=== PATIENT | male | born 1935 | race Two or more races ===

== ENCOUNTER 2017-07-29 15:33 | Inpatient (IN) | payer BC, MEDICARE ==
[~2017-07-29] VITALS: Ht 172.7 cm; Wt 66.3 kg
--- NOTE | 2017-07-29 15:45 | NUR ---
AAOX3, BIB RA FROM HOME, IS UNABLE TO CARE PT AT HOME. RR IS EVEN AND UNLABORED WITH NAD NOTED. SKIN IS WARM AND DRY. PLACED ON THE MONITOR. WILL CONTINUOUSLY MONITOR THE PATIENT. AWAITING MD FOR EVAL.
[2017-07-29 16:05] LABS: BASOPHILS % (AUTO) 0.4 % (0.0-2.0); EOSINOPHILS # (AUTO) 0.3 /CMM (0.0-0.7); EOSINOPHILS % (AUTO) 2.9 % (0.0-6.0); HEMATOCRIT 42 % (39-51); HEMOGLOBIN 13.8 g/dL (13.5-17.5); LYMPHOCYTES # (AUTO) 1.8 /CMM (0.8-4.8); LYMPHOCYTES % (AUTO) 17.8 % (20.0-44.0); MEAN CORPUSCULAR HEMOGLOBIN 29 PG (26.0-33.0); MEAN CORPUSCULAR HGB CONC 33 g/dl (31.0-36.0); MEAN CORPUSCULAR VOLUME 89 fL (80-96); MONOCYTES # (AUTO) 0.9 /CMM (0.1-1.30); MONOCYTES % (AUTO) 8.6 % (2.0-12.0); NEUTROPHILS # (AUTO) 7.2 /CMM (1.8-8.9); NEUTROPHILS % (AUTO) 70.3 % (43.0-81.0); PLATELET COUNT (AUTO) 181 /CMM (150-450); RDW COEFFICIENT OF VARIATION 13.9 (11.5-15.0); WHITE BLOOD COUNT (AUTO) 10.2 K/uL (4.3-11.0)
[2017-07-29 16:15] LABS: CALCIUM, SERUM 9.9 mg/dL (8.5-10.1); CARBON DIOXIDE 30 mmol/L (21-32); CHLORIDE 104 mmol/L (98-107); CREATININE 1.4 mg/dL (0.6-1.3); GLUCOSE 207 mg/dL (74-106); POTASSIUM 3.9 mmol/L (3.5-5.1); SODIUM SERUM 140 mmol/L (136-145); UREA NITROGEN, BLOOD 50 mg/dL (7-18)
[2017-07-29 16:23] LABS: ACETAMINOPHEN 0 ug/ml (10-30); ALANINE AMINOTRANSFERASE 18 U/L (12-78); ALBUMIN 2.9 g/dL (3.4-5.0); ALCOHOL, BLOOD < 3 mg/dL (0-0); ALKALINE PHOSPHATASE 233 U/L (46-116); ASPARTATE AMINOTRANSFERASE 20 U/L (15-37); BILIRUBIN,DIRECT 0.1 mg/dL (0.0-0.2); BILIRUBIN,TOTAL 0.3 mg/dL (0.2-1.0); SALICYLATE 1.1 mg/dL (2.8-20.0); TOTAL PROTEIN, SERUM 8.5 g/dL (6.4-8.2)
[2017-07-29 16:32] LABS: TROPONIN I 0.188 ng/mL (0.00-0.056)
--- NOTE | 2017-07-29 16:35 | NUR ---
Patient is resting comfortably in bed with eyes closed. Easily aroused. VSS
--- NOTE | 2017-07-29 17:26 | NUR ---
CALLED [employer] CHEMICAL TESTER WAS PAGED.
[2017-07-29] MEDS ORDERED: METO-304 GT (18:00)
[2017-07-29] MEDS ORDERED: TEMA15CA GT (18:00)
[2017-07-29] MEDS ORDERED: MAGN400T6 GT (18:00)
[2017-07-29] MEDS ORDERED: BETH25TA GT (18:00)
[2017-07-29] MEDS ORDERED: ASPI81TA2 GT (18:00)
[2017-07-29] MEDS ORDERED: TAMS0.4C34 GT (18:00)
[2017-07-29] MEDS ORDERED: HYDR-3026 PO (18:00)
[2017-07-29] MEDS ORDERED: TRAM50TA2 GT (18:00)
[2017-07-29] MEDS ORDERED: AMIN30LI2 GT (18:00)
[2017-07-29] MEDS ORDERED: LEVO125T8 GT (18:00)
[2017-07-29] MEDS ORDERED: MIRT15TA7 GT (18:00)
[2017-07-29] MEDS ORDERED: PRAV40TA3 GT (18:00)
[2017-07-29] MEDS ORDERED: CARB-93 GT (18:00)
[2017-07-29] MEDS ORDERED: FURO20TA4 GT (18:00)
--- NOTE | 2017-07-29 18:35 | NUR ---
REPORT GIVEN TO MAGY BROCK FOR [employer] TELE [id number]
[2017-07-29] MEDS ORDERED: IV NS 0.9% 1,000 ML IV PRN (18:44)
[2017-07-29] MEDS ORDERED: TRAMADOL HCL 50 MG TABLET GT PRN ×2 (19:00→19:15)
[2017-07-29] MEDS ORDERED: ENOXAPARIN SODIUM 30 MG/0.3 ML DISP.SYRIN SQ SCH (19:00)
[2017-07-29] MEDS ORDERED: ZOLPIDEM TARTRATE 5 MG TABLET PO PRN ×2 (19:00→19:15)
[2017-07-29] MEDS ORDERED: MAGNESIUM HYDROXIDE 30 ML UDC PO PRN ×2 (19:00→19:15)
[2017-07-29] MEDS ORDERED: MAG HYDROX/AL HYDROX/SIMETH 30 ML UDC PO PRN (19:00)
[2017-07-29] MEDS ORDERED: Z GUARD REMEDY 2 OZ OINT TP PRN ×2 (19:00→19:15)
[2017-07-29] MEDS ORDERED: ONDANSETRON HCL/PF 4 MG/2 ML VIAL IVP PRN ×2 (19:00→19:15)
[2017-07-29] MEDS ORDERED: ACETAMINOPHEN 325 MG TABLET PO PRN (19:00)
[2017-07-29] MEDS ORDERED: HYDROCODONE/APAP 5/325MG 1 EACH TABLET PO PRN ×2 (19:00→19:15)
--- NOTE | 2017-07-29 19:08 | NUR ---
TELE/RN NOTES RECEIVED PT. FROM ER VIA [facility]. PT. IS AWAKE, ALERT AND ORIENTED X2. BREATHING EVEN AND UNLABORED ON 2LPM O2 VIA NC. NO SOB, RESPIRATORY DISTRESS OR COMPLAINTS OF PAIN NOTED AT THIS TIME. ORIENTED PT. TO ROOM. PLACED EXTERNAL LEARNING AND DEVELOPMENT DIRECTOR ON PT. CURRENT RHYTHM NSR HR 81. PT. WITH LEFT FOREARM 18 GAUGE IV SALINE LOCK PRESENT, PATENT AND INTACT. PT. WITH G-TUBE PRESENT, PATENT AND INTACT. PT. WITH COLOSTOMY PRESENT AND INTACT DRAINING SEMI FORMED BROWN STOOL. BED LOCKED AND IN LOWEST POSITION, SIDE RAILS UP X3, CALL LIGHT WITHIN REACH. AWAITING ADMITTING ORDERS. WILL CONTINUE TO MONITOR.
[2017-07-29] MEDS ORDERED: MAG HYDROX/AL HYDROX/SIMETH 30 ML UDC GT PRN (19:15)
[2017-07-29] MEDS ORDERED: NUT.250L18 GT (19:25)
[2017-07-29] MEDS ORDERED: hydrOXYzine PAMOATE 25 MG CAPSULE GT PRN (20:00)
[2017-07-29] MEDS ORDERED: ZOLPIDEM TARTRATE 5 MG TABLET GT PRN (20:44)
[2017-07-29] MEDS ORDERED: ACETAMINOPHEN 650 MG/20.3 ML UDC GT PRN (21:00)
[2017-07-29] MEDS ORDERED: CARBIDOPA/LEVODOPA 25/100 MG 1 UDTAB GT SCH (21:00)
--- NOTE | 2017-07-29 21:20 | NUR ---
TELE/RN NOTES CALLED [facility] ELEMENTARY SCHOOL TUTOR TO CLARIFY ORDERS. [facility] E[employer] TUTOR DR. JONES PAGED. AWAITING CALL BACK.
[2017-07-29 21:23] VITALS: BP 124/60
[2017-07-29] MEDS: IV NS 0.9% 1,000 ML IV PRN (21:32)
[2017-07-29] MEDS: ENOXAPARIN SODIUM 40 MG/0.4 ML DISP.SYRIN SQ SCH (21:48)
[2017-07-29] MEDS: CARBIDOPA/LEVODOPA 25/100 MG 1 UDTAB GT SCH (21:48)
[2017-07-29] MEDS: MIRTAZAPINE 15 MG TABLET GT SCH (21:48)
[2017-07-29] MEDS ORDERED: ATORVASTATIN 10 MG TABLET PO SCH (22:00)
[2017-07-29] MEDS ORDERED: MIRTAZAPINE 15 MG TABLET GT SCH (22:00)
[2017-07-29] MEDS ORDERED: TEMAZEPAM 15 MG CAPSULE GT SCH (22:00)
[2017-07-29] MEDS: PROSOURCE / PROSTAT (PYXIS) 30 ML UDC GT SCH (22:17)
--- NOTE | 2017-07-29 22:40 | NUR ---
TELE/RN NOTES SPOKE WITH [facility] TELEPHONE INSTRUMENT SUPERVISOR DR. JONES. CLARIFIED PT. ADMIT TO ORDER. PT. ORIGINALLY ADMITTED TO MED SURG HOWEVER PT. HAS TROPONIN OF 0.188 AND NO OTHER TROPONIN LABS ORDERED TO BE DRAWN. PER DR. JONES NEW ORDER: TELE MONITORING, REPEAT TROPONIN LAB ONCE, ECHO AND CARDIAC CONSULT. NOTIFIED DR. JONES PT. RECEIVES DIABETISOURCE @ 50ML/HR AT HOME. PER DR. JONES GLYTROL TUBE FEEDING @ 50ML/HR AND Q6HR ACCUCHECKS WITH MODERATE SLIDING SCALE. WILL CARRY OUT ORDERS. WILL CONTINUE TO MONITOR.
[2017-07-29] MEDS ORDERED: DEXTROSE 50%-WATER 50 ML DISP.SYRIN IV PRN (23:00)
[2017-07-29] MEDS: BLOOD SUGAR DIAGNOSTIC 1 EACH STRIP IN SCH (23:40)
[2017-07-30] VITALS (7 sets, daily range): BP systolic 117–131; BP diastolic 53–69
[2017-07-30] MEDS: GLYTROL 1,000 ML BAG GT PRN (00:01)
[2017-07-30] MEDS: BLOOD SUGAR DIAGNOSTIC 1 EACH STRIP IN SCH ×4 (05:51→23:38)
--- NOTE | 2017-07-30 06:34 | NUR ---
TELE/RN NOTES PT. IS LYING IN BED RESTING. BREATHING EVEN AND UNLABORED ON 2LPM O2 VIA NC. NO SOB, RESPIRATORY DISTRESS OR COMPLAINTS OF PAIN NOTED AT THIS TIME AND THROUGHOUT SHIFT. PT. WITH EXTERNAL PUNCHER PRESENT AND INTACT. CURRENT RHYTHM = NSR HR 64. PT. WITH LEFT FOREARM 18 GAUGE PERIPHERAL IV PRESENT, PATENT AND INTACT ADMINISTERING TO PT. NS @ 75 ML/HR. PT. WITH G-TUBE PRESENT, PATENT AND INTACT ADMINISTERING TO PT. GLYTROL @ 50ML/HR. PT. TOLERATING TUBE FEEDING WELL. NO RESIDUAL NOTED AT THIS TIME AND THROUGHOUT SHIFT. PT. WITH COLOSTOMY PRESENT AND INTACT DRAINING SEMI FORMED BROWN STOOL. ALL PT. NEEDS MET. PT. OFFLOADED, TURNED AND REPOSITIONED Q2H AND NEEDED. BED LOCKED AND IN LOWEST POSITION, SIDE RAILS UP X3, CALL LIGHT WITHIN REACH. AWAITING ADMITTING ORDERS. WILL ENDORSE TO DAYSHIFT NURSE FOR CONTINUITY OF CARE.
[2017-07-30 06:41] LABS: BASOPHILS % (AUTO) 0.4 % (0.0-2.0); EOSINOPHILS # (AUTO) 0.4 /CMM (0.0-0.7); EOSINOPHILS % (AUTO) 4.6 % (0.0-6.0); HEMATOCRIT 38 % (39-51); HEMOGLOBIN 12.2 g/dL (13.5-17.5); LYMPHOCYTES # (AUTO) 2.6 /CMM (0.8-4.8); MEAN CORPUSCULAR HEMOGLOBIN 30 PG (26.0-33.0); MEAN CORPUSCULAR HGB CONC 33 g/dl (31.0-36.0); MEAN CORPUSCULAR VOLUME 91 fL (80-96); MONOCYTES # (AUTO) 0.8 /CMM (0.1-1.30); MONOCYTES % (AUTO) 9.5 % (2.0-12.0); NEUTROPHILS # (AUTO) 4.8 /CMM (1.8-8.9); NEUTROPHILS % (AUTO) 55.5 % (43.0-81.0); PLATELET COUNT (AUTO) 156 /CMM (150-450); RDW COEFFICIENT OF VARIATION 15.3 (11.5-15.0); RED BLOOD CELL COUNT(AUTO) 4.11 MIL/uL (4.5-6.0); WHITE BLOOD COUNT (AUTO) 8.6 K/uL (4.3-11.0)
[2017-07-30 06:55] LABS: CALCIUM, SERUM 9.2 mg/dL (8.5-10.1); CARBON DIOXIDE 30 mmol/L (21-32); CHLORIDE 111 mmol/L (98-107); CREATININE 1.5 mg/dL (0.6-1.3); GLUCOSE 105 mg/dL (74-106); MAGNESIUM 2.2 mg/dL (1.8-2.4); PHOSPHORUS 4.3 mg/dL (2.5-4.9); POTASSIUM 3.8 mmol/L (3.5-5.1); SODIUM SERUM 147 mmol/L (136-145); UREA NITROGEN, BLOOD 61 mg/dL (7-18)
--- NOTE | 2017-07-30 07:22 | NUR ---
TELE/RN NOTES RECEIVED PT ASLEEP IN BED, EASILY AROUSABLE. A/0 X2, NO SIGNS OF PAIN OR DISCOMFORTS NOTED AT THIS TIME. ON O2 VIA NC AT 2LPM, BREATHING EVEN AND UNLABORED. ON CARDIAC TELE-MONITORING WITH CURRENT READING OF NSR AND HR 66. IV ACCES ON LFA G#18 PATENT AND INTACT, IVF OF NS @ 75ML/HR INFUSING WELL, NO SIGNS OF INFILTRATION NOTED. PT. WITH G-TUBE PATENT AND INTACT WITH GLYTROL @ 50ML/HR IN PROGRESS, TOLERATING WELL. ASPIRATION PRECAUTIONS MAINTAINED. PT. WITH COLOSTOMY IN PLACED DRAINING SEMI-FORMED BROWN STOOL. BED LOCKED AND IN LOWEST POSITION WITH SIDE RAILS UP X3. CALL LIGHT WITHIN REACH.WILL CONTINUE TO MONITOR PT ACCORDINGLY
[2017-07-30] MEDS: BETHANECHOL CHLORIDE (25 MG) 25 MG TABLET GT SCH ×3 (08:29→17:16)
[2017-07-30] MEDS: CARBIDOPA/LEVODOPA 25/100 MG 1 UDTAB GT SCH ×5 (08:30→20:14)
[2017-07-30] MEDS: MAGNESIUM OXIDE 400 MG TABLET GT SCH ×2 (08:30→17:16)
[2017-07-30] MEDS: METOPROLOL SUCCINATE 50 MG TAB.SR.24H PO SCH ×2 (08:30→17:21)
[2017-07-30] MEDS: ASPIRIN 81 MG TAB.CHEW GT SCH (08:30)
[2017-07-30] MEDS: LEVOTHYROXINE SODIUM 125 MCG TABLET GT SCH (08:31)
[2017-07-30] MEDS: PROSOURCE / PROSTAT (PYXIS) 30 ML UDC GT SCH (08:31)
[2017-07-30] MEDS: TAMSULOSIN 0.4 MG CAP.SR.24H GT SCH ×2 (08:33→17:15)
[2017-07-30] MEDS ORDERED: MAGNESIUM OXIDE 400 MG TABLET GT SCH (09:00)
[2017-07-30] MEDS ORDERED: LEVOTHYROXINE SODIUM 125 MCG TABLET GT SCH (09:00)
[2017-07-30] MEDS ORDERED: METOPROLOL SUCCINATE 50 MG TAB.SR.24H PO SCH (09:00)
[2017-07-30] MEDS ORDERED: BETHANECHOL CHLORIDE (25 MG) 25 MG TABLET GT SCH (09:00)
[2017-07-30] MEDS ORDERED: TAMSULOSIN 0.4 MG CAP.SR.24H GT SCH (09:00)
[2017-07-30] MEDS ORDERED: ASPIRIN 81 MG TAB.CHEW GT SCH (09:00)
--- NOTE | 2017-07-30 10:43 | NUR ---
WOUND CARE CONSULT: PT REFUSED TO BE TURNED FOR SKIN ASSESSMENT. WILL SEE PT PT CONDITION PERMITS. RECOMMENDATIONS MADE FOR SKIN PROTECTION. DISCUSSED WITH NURSING STAFF. PT TO BE PLACED ON ISOFLEX LOW AIRLOSS BED WHEN AVAILABLE. CURRENT STUART SCORE IS 12. PT INCONTINENT. G TUBE NOTED AND COLOSTOMY. MD IN AGREEMENT WITH PLAN OF CARE.
[2017-07-30] MEDS: IV NS 0.9% 1,000 ML IV PRN (10:57)
--- NOTE | 2017-07-30 11:38 | NUR ---
WOUND CARE: PT ALLOWED SKIN ASSESSMENT AND NOTED TO HAVE SACRAL/BUTTOCK SCARRING AND OLD RASH TO UPPER BACK WITH PEELING SKIN. DEFER TO MD FOR RASH. ISOFLEX SABINO BED TO BE PLACED. WILL SEE PRN. ALL SKIN PROTECTION RECOMMENDATIONS DISCUSSED WITH NURSING STAFF. MD IN AGREEMENT WITH PLAN OF CARE.
[2017-07-30 12:14] LABS: THYROID STIMULATING HORMONE 3.577 uIU/mL (0.358-3.74)
[2017-07-30] MEDS: INSULIN REGULAR, HUMAN 100 UNIT/ML 3 ML VIAL SQ PRN ×2 (12:48→17:48)
[2017-07-30 12:51] LABS: TROPONIN I 0.137 ng/mL (0.00-0.056)
[2017-07-30] MEDS: IV 1/2NS 1000 ML 1,000 ML IV PRN (15:19)
--- NOTE | 2017-07-30 16:01 | NUR ---
NAZ met with APS social service technician Luz [phone] who informed NAZ that pt. has an open APS case. Pt. is unable to go back home due to pt's unable to care for the pt. Pt's is now on a 5150 hold in [facility] at [facility] as well. APS NAZ Escobar informed SW that pt's had a breakdown and cannot care for the pt. NAZ informed APS NAZ that pt. will be placed in an SNF and embedded case manager Erica Koch is aware. BIBI CHILDS would like to be updated once pt. is placed in a SNF.
--- NOTE | 2017-07-30 18:45 | NUR ---
TELE/RN CLOSING NOTES PT AWAKE AND RESTING @ MODERATE HIGH BACKREST IN BED. A/0 X2, VERBALLY RESPONSIVE, NO C/O PAIN VOICED THROUGHOUT THE DAY. ON TELE-MONITORING WITH CURRENT READING OF NSR AND HR 65, NO C/O CHEST PAIN VOICED. MAINTAINED ON O2 VIA NC @ 2LPM, BREATHING EVEN WITH NO SOB NOTED. IV ACCES ON LFA G#18 PATENT AND INTACT, IVF OF 1/2 NS @ 75ML/HR INFUSING WELL, NO SIGNS OF INFILTRATION NOTED. G-TUBE PATENT AND INTACT WITH GLYTROL @ 50ML/HR RUNNING AND , TOLERATING WELL. ASPIRATION PRECAUTIONS MAINTAINED. PT. WITH COLOSTOMY IN PLACED DRAINING SMALL AMOUNT OF SEMI-FORMED BROWN STOOL. KEPT BED LOCKED AND IN LOWEST POSITION WITH SIDE RAILS UP X3. CALL LIGHT WITHIN REACH. ALL NEEDS AND CARE PROVIDED WELL. WILL ENDORSED TO ARTIST REPRESENTATIVE NURSE FOR MANUEL.
--- NOTE | 2017-07-30 20:00 | NUR ---
TELE/RN OPENING NOTES PATIENT IN BED, HOB ELEVATED, ALERT X2, AWAKE, ABLE TO VERBALIZE NEEDS. DENIES PAIN. NO GUARDING AND NO GRIMACE. ON OXYGEN AT 2L VIA NC. MONITORING FOR ANY DISCOMFORT. GTUBE PATENT, REPOSITION AND TURNED,T CHECK WITH ZERO RESIDUAL, PLACEMENT CHECK. COLOSTOMY BAG INTACT , WILL PROVIDE AND CONTINUE CARE. TELE MONITORING AT . CALL LIGHTS WITHIN REACH, BED ALARM ON.
[2017-07-30] MEDS: ENOXAPARIN SODIUM 40 MG/0.4 ML DISP.SYRIN SQ SCH (20:15)
[2017-07-30] MEDS: MIRTAZAPINE 15 MG TABLET GT SCH (21:28)
[2017-07-30] MEDS: TEMAZEPAM 15 MG CAPSULE GT SCH ×2 (21:28→21:30)
[2017-07-31] VITALS: BP 122/60
[2017-07-31] MEDS: IV 1/2NS 1000 ML 1,000 ML IV PRN (03:10)
[2017-07-31 04:00] VITALS: BP 135/66
[2017-07-31] MEDS: BLOOD SUGAR DIAGNOSTIC 1 EACH STRIP IN SCH ×4 (05:14→23:48)
--- NOTE | 2017-07-31 06:31 | NUR ---
tele/rn notes PATIENT IN BED, AWAKE, ALERTX2, MINIMAL SLEEP EVEN AFTER SLEEPING MED ORDER FOR ROUTINE, PROVIDED CARE AND VERBALIZED NEED TO SEE THE AND THAT TRANSFER TO SNF ORDERED, INFORM ACET[employer] RECOVERY WORKER WILL F/U HIS CONCERNS W/ PLACEMENT. GTUBE FEEDING AND PATENCYM WITH ZERO RESIDUALS, COLOSTOMY BAG CHANGE AND APPLIED BARRIER PROTECTOR , REPOSITON FOR COMFORT, ON OXYGEN VIA 2L NC. WILL CONTINUE TO MONITOR,
[2017-07-31] MEDS: CARBIDOPA/LEVODOPA 25/100 MG 1 UDTAB GT SCH ×5 (06:42→21:09)
--- NOTE | 2017-07-31 06:50 | NUR ---
tele/rn notes PATIENT IN BED, AWAKE, ALERTX2, MINIMAL SLEEP EVEN AFTER SLEEPING MED ORDER FOR ROUTINE, PROVIDED CARE AND VERBALIZED NEED TO SEE THE AND THAT TRANSFER TO SNF ORDERED, INFORM MUNICIPAL CLERK WILL F/U HIS CONCERNS W/ PLACEMENT. GTUBE FEEDING AND PATENCYM WITH ZERO RESIDUALS, COLOSTOMY BAG CHANGE AND APPLIED BARRIER PROTECTOR , REPOSITON FOR COMFORT, ON OXYGEN VIA 2L NC. WILL CONTINUE TO MONITOR,
--- NOTE | 2017-07-31 07:29 | NUR ---
MS RN OPENING NOTES RECEIVED PATIENT IN STABLE CONDITION. IN NO APPARENT DISTRESS. PATIENT IS ALERT AND ORIENTED. BEDSIDE RAILS ARE UP X2. BED IS LOCKED AND LOWERED. CALL LIGHT IS WITHIN REACH. WILL CONTINUE TO MONITOR.
[2017-07-31 08:00] VITALS: BP 140/72
[2017-07-31] MEDS: ASPIRIN 81 MG TAB.CHEW GT SCH (08:16)
[2017-07-31] MEDS: MAGNESIUM OXIDE 400 MG TABLET GT SCH ×2 (08:16→17:24)
[2017-07-31] MEDS: BETHANECHOL CHLORIDE (25 MG) 25 MG TABLET GT SCH ×3 (08:16→17:25)
[2017-07-31] MEDS: TAMSULOSIN 0.4 MG CAP.SR.24H GT SCH ×2 (08:16→17:24)
[2017-07-31] MEDS: METOPROLOL SUCCINATE 50 MG TAB.SR.24H PO SCH ×2 (08:17→17:25)
[2017-07-31] MEDS: PROSOURCE / PROSTAT (PYXIS) 30 ML UDC GT SCH (08:17)
[2017-07-31] MEDS: LEVOTHYROXINE SODIUM 125 MCG TABLET GT SCH (08:17)
[2017-07-31] MEDS ORDERED: FUROSEMIDE 20 MG TABLET GT SCH ×2 (09:00)
[2017-07-31 11:41] LABS: BASOPHILS % (AUTO) 0.3 % (0.0-2.0); EOSINOPHILS # (AUTO) 0.4 /CMM (0.0-0.7); EOSINOPHILS % (AUTO) 5.6 % (0.0-6.0); HEMATOCRIT 34 % (39-51); HEMOGLOBIN 11.5 g/dL (13.5-17.5); LYMPHOCYTES # (AUTO) 2.2 /CMM (0.8-4.8); MEAN CORPUSCULAR HEMOGLOBIN 30 PG (26.0-33.0); MEAN CORPUSCULAR HGB CONC 34 g/dl (31.0-36.0); MEAN CORPUSCULAR VOLUME 89 fL (80-96); MONOCYTES # (AUTO) 0.6 /CMM (0.1-1.30); NEUTROPHILS # (AUTO) 4.3 /CMM (1.8-8.9); NEUTROPHILS % (AUTO) 57.1 % (43.0-81.0); PLATELET COUNT (AUTO) 142 /CMM (150-450); RDW COEFFICIENT OF VARIATION 14.9 (11.5-15.0); RED BLOOD CELL COUNT(AUTO) 3.83 MIL/uL (4.5-6.0); WHITE BLOOD COUNT (AUTO) 7.5 K/uL (4.3-11.0)
[2017-07-31 11:54] LABS: CALCIUM, SERUM 8.7 mg/dL (8.5-10.1); CARBON DIOXIDE 28 mmol/L (21-32); CHLORIDE 109 mmol/L (98-107); CREATININE 1.2 mg/dL (0.6-1.3); GLUCOSE 187 mg/dL (74-106); POTASSIUM 4.2 mmol/L (3.5-5.1); SODIUM SERUM 142 mmol/L (136-145); UREA NITROGEN, BLOOD 44 mg/dL (7-18)
[2017-07-31] MEDS: INSULIN REGULAR, HUMAN 100 UNIT/ML 3 ML VIAL SQ PRN ×3 (12:13→23:47)
[2017-07-31 16:00] VITALS: BP 149/63
--- NOTE | 2017-07-31 19:25 | NUR ---
MS RN CLOSING NOTES PATIENT IS IN NO APPARENT DISTRESS. ALL NEEDS WERE MET. BEDSIDE RAILS ARE UP X 2. CALL LIGHT IS WITHIN REACH. BED IS LOCKED AND LOWERED. REPORT WAS GIVEN TO SHIPYARD PAINTER HELPER NURSE ED.
--- NOTE | 2017-07-31 19:35 | NUR ---
RN MS - INITIAL NOTES PATIENT IS IN BED, CURRENTLY ASLEEP. NO S/S OF SOB OR ANY DISCOMFORT NOTED. CURRENTLY ON TUBE FEEDING @50CC/HR. BED IN LOW POSITION AND LOCKED. SIDERAILS X2 UP. WILL CONTINUE TO MONITOR PATIENT.
[2017-07-31] MEDS: GLYTROL 1,000 ML BAG GT PRN (19:53)
[2017-07-31 20:00] VITALS: BP 104/48
[2017-07-31] MEDS: MIRTAZAPINE 15 MG TABLET GT SCH (21:09)
[2017-07-31] MEDS: TEMAZEPAM 15 MG CAPSULE GT SCH (21:09)
[2017-07-31] MEDS: ENOXAPARIN SODIUM 40 MG/0.4 ML DISP.SYRIN SQ SCH (21:10)
[2017-08-01] MEDS: BLOOD SUGAR DIAGNOSTIC 1 EACH STRIP IN SCH ×3 (06:19→17:53)
[2017-08-01] MEDS: CARBIDOPA/LEVODOPA 25/100 MG 1 UDTAB GT SCH ×4 (06:19→17:52)
[2017-08-01] MEDS: INSULIN REGULAR, HUMAN 100 UNIT/ML 3 ML VIAL SQ PRN ×3 (06:23→17:52)
[2017-08-01 06:33] LABS: BASOPHILS % (AUTO) 0.4 % (0.0-2.0); EOSINOPHILS # (AUTO) 0.3 /CMM (0.0-0.7); EOSINOPHILS % (AUTO) 4.7 % (0.0-6.0); HEMATOCRIT 36 % (39-51); HEMOGLOBIN 11.9 g/dL (13.5-17.5); LYMPHOCYTES # (AUTO) 1.6 /CMM (0.8-4.8); LYMPHOCYTES % (AUTO) 24.3 % (20.0-44.0); MEAN CORPUSCULAR HEMOGLOBIN 30 PG (26.0-33.0); MEAN CORPUSCULAR HGB CONC 33 g/dl (31.0-36.0); MEAN CORPUSCULAR VOLUME 90 fL (80-96); MONOCYTES # (AUTO) 0.5 /CMM (0.1-1.30); MONOCYTES % (AUTO) 8.4 % (2.0-12.0); NEUTROPHILS % (AUTO) 62.2 % (43.0-81.0); PLATELET COUNT (AUTO) 141 /CMM (150-450); RDW COEFFICIENT OF VARIATION 14.6 (11.5-15.0); RED BLOOD CELL COUNT(AUTO) 4.01 MIL/uL (4.5-6.0); WHITE BLOOD COUNT (AUTO) 6.4 K/uL (4.3-11.0)
[2017-08-01 06:50] LABS: CALCIUM, SERUM 8.9 mg/dL (8.5-10.1); CARBON DIOXIDE 24 mmol/L (21-32); CHLORIDE 107 mmol/L (98-107); CREATININE 1.1 mg/dL (0.6-1.3); GLUCOSE 194 mg/dL (74-106); POTASSIUM 4.1 mmol/L (3.5-5.1); SODIUM SERUM 140 mmol/L (136-145); UREA NITROGEN, BLOOD 35 mg/dL (7-18)
--- NOTE | 2017-08-01 07:35 | NUR ---
MS RN OPENING NOTES RECEIVED PT FROM NIGHTSHIFT NURSE IN STABLE CONDITION. PT IS A/O X1-2. NO SOB OR SIGNS OF DISTRESS NOTED. BREATHING IS EVEN AND UNLABORED. PT IS ON 2L VIA NC AND SATING WELL @ 97%. HE DENIES ANY PAIN AT THIS TIME. GTUBE NOTED TO BE CLEAN, DRY, AND INTACT. PLACEMENT VERIFIED VIA AUSCULTATION. PT IS CURRENTLY RECEIVING GLYTROL @50 CC/HR AND TOLERATING FEEDING WELL. NO RESIDUALS ASPIRATED AT THIS TIME. COLOSTOMY NOTED TO BE CLEAN, DRY, AND INTACT. NO CHASITY PRESENT AT THIS TIME. IV NOTED ON LEFT FA 18 TO BE PATENT AND INTACT. NO REDNESS OR SIGNS OF INFILTRATION NOTED. BED IN LOW LOCKED POSITION, SIDE RAILS UP X3, CALL LIGHT WITHIN REACH, BED ALARM ON, NPO STATUS MAINTAINED. WILL CONTINUE TO MONITOR.
[2017-08-01 08:00] VITALS: BP 134/72
[2017-08-01] MEDS: MAGNESIUM OXIDE 400 MG TABLET GT SCH ×2 (09:18→17:52)
[2017-08-01] MEDS: METOPROLOL SUCCINATE 50 MG TAB.SR.24H PO SCH ×2 (09:18→17:53)
[2017-08-01] MEDS: BETHANECHOL CHLORIDE (25 MG) 25 MG TABLET GT SCH ×3 (09:19→17:52)
[2017-08-01] MEDS: TAMSULOSIN 0.4 MG CAP.SR.24H GT SCH ×2 (09:20→17:52)
[2017-08-01] MEDS: LEVOTHYROXINE SODIUM 125 MCG TABLET GT SCH (09:20)
[2017-08-01] MEDS: ASPIRIN 81 MG TAB.CHEW GT SCH (09:20)
[2017-08-01] MEDS: PROSOURCE / PROSTAT (PYXIS) 30 ML UDC GT SCH (09:20)
[2017-08-01] MEDS: GLYTROL 1,000 ML BAG GT PRN (11:58)
[2017-08-01 16:00] VITALS: BP 139/69
[2017-08-01 17:53] VITALS: BP 139/69
--- NOTE | 2017-08-01 19:01 | NUR ---
MS RN CLOSING NOTES PT REMAINS STABLE AND READY FOR DISCHARGE. REPORT WAS CALLED TO [facility]. OSMAN THE RN TOOK REPORT AND STATED THAT PATIENT WILL BE PLACED IN ROOM 3A/ ALL DISCHARGE INSTRUCTIONS WERE GIVEN TO HER. DISCHARGE PAPERWORK WAS SIGNED BY MYSELF AND A FELLOW RN DUE TO PT'S MENTAL STATUS. ALL BELONGINGS ARE WITH THE PT. IV WAS SUCCESSFULLY REMOVED WITHOUT AY COMPLICATIONS. ALL DUE MEDS GIVEN AND ORDERS CARRIED OUT ACCORDINGLY. WILL ENDORSE TO NIGHTSHIFT NURSE TO CARRY OUT DISCHARGE ONCE THE AMBULANCE STAFF ARRIVES
--- NOTE | 2017-08-01 19:22 | NUR ---
MS ASSISTIVE TECHNOLOGY SPECIALIST NOTES PT WAS DISCHARGED FROM FACILITY IN STABLE CONDITION. LEFT VIA AMBULANCE TRANSPORT. ALL NEEDS WERE MET DURING SHIFT AND ORDERS CARRIED OUT ACCORDINGLY.
--- NOTE | 2017-08-05 08:34 | NUR ---
SW called APS farmworker rice Luz and left her a voicemail message informing her that pt. was discharged to [facility] located at [address] [place] [address]. [place] .
== END 2017-08-01 19:10 | DRG 280 ==
LOC: ER 15:36 → TELE 18:00 → ER 18:40 → MED 07-31 08:24
PROVIDERS: ADMIT Internal Medicine; ATTEND Internal Medicine
DX: I21.4 Non-ST elevation (NSTEMI) myocardial infarction (principal); G93.41 Metabolic encephalopathy; N17.9 Acute kidney failure, unspecified; E87.0 Hyperosmolality and hypernatremia; I13.0 Hypertensive heart and chronic kidney disease with heart failure and stage 1 through stage 4 chronic kidney disease, or unspecified chronic kidney disease; I50.30 Unspecified diastolic (congestive) heart failure; Z86.73 Personal history of transient ischemic attack (TIA), and cerebral infarction without residual deficits; Z93.3 Colostomy status; Z93.1 Gastrostomy status; Z79.899 Other long term (current) drug therapy; Z79.82 Long term (current) use of aspirin; Z74.01 Bed confinement status; Z51.5 Encounter for palliative care; R13.10 Dysphagia, unspecified; N40.0 Benign prostatic hyperplasia without lower urinary tract symptoms; K21.9 Gastro-esophageal reflux disease without esophagitis; I70.0 Atherosclerosis of aorta; E03.9 Hypothyroidism, unspecified; G20 Parkinson's disease; E78.5 Hyperlipidemia, unspecified; I25.10 Atherosclerotic heart disease of native coronary artery without angina pectoris; E11.22 Type 2 diabetes mellitus with diabetic chronic kidney disease; N18.9 Chronic kidney disease, unspecified
CPT/HCPCS: 36415; 71010-TC; 80048-TC; 80061-TC; 80076-TC; 82728-TC; 82962-TC; 83540-TC; 83605-TC; 83735-TC; 84100-TC; 84439-TC; 84443-TC; 84484-TC; 85025-TC; 87040-TC; 87081-TC; 93307-TC; A4606; G0480; J1650; J1815; J3490; J7030; Q0177; Z7610

== ENCOUNTER 2017-09-26 12:17 | Inpatient (IN) | payer MEDICARE ==
[~2017-09-26] VITALS: Ht 170.2 cm; Wt 73.5 kg
[~2017-09-26 12:17] MED LIST: AMIN30LI2 GT; ASPI-1169 GT; BETH25TA GT; CARB-93 GT; HYDR-3026 PO; LEVO125T8 GT; MAGN400T6 GT; METO-357 GT; MIRT15TA7 GT; NUT.250L18 GT; PRAV40TA3 GT; TAMS0.4C34 GT; TEMA15CA GT; TRAM50TA2 GT
[2017-09-26] MEDS ORDERED: IV NS 0.9% 1,000 ML BAG IV ONE (13:00)
[2017-09-26 13:14] LABS: BASOPHILS % (AUTO) 0.4 % (0.0-2.0); EOSINOPHILS # (AUTO) 0.5 /CMM (0.0-0.7); EOSINOPHILS % (AUTO) 7.1 % (0.0-6.0); HEMATOCRIT 32 % (39-51); HEMOGLOBIN 11.1 g/dL (13.5-17.5); LYMPHOCYTES # (AUTO) 1.5 /CMM (0.8-4.8); LYMPHOCYTES % (AUTO) 22.1 % (20.0-44.0); MEAN CORPUSCULAR HEMOGLOBIN 31 PG (26.0-33.0); MEAN CORPUSCULAR HGB CONC 34 g/dl (31.0-36.0); MEAN CORPUSCULAR VOLUME 89 fL (80-96); MONOCYTES # (AUTO) 0.7 /CMM (0.1-1.30); MONOCYTES % (AUTO) 10.8 % (2.0-12.0); NEUTROPHILS % (AUTO) 59.6 % (43.0-81.0); PLATELET COUNT (AUTO) 245 /CMM (150-450); RED BLOOD CELL COUNT(AUTO) 3.62 MIL/uL (4.5-6.0); WHITE BLOOD COUNT (AUTO) 6.7 K/uL (4.3-11.0)
[2017-09-26 13:25] LABS: CARBON DIOXIDE 28 mmol/L (21-32); CHLORIDE 100 mmol/L (98-107); CREATININE 1.5 mg/dL (0.6-1.3); GLUCOSE 336 mg/dL (74-106); POTASSIUM 4.7 mmol/L (3.5-5.1); SODIUM SERUM 135 mmol/L (136-145); UREA NITROGEN, BLOOD 47 mg/dL (7-18)
[2017-09-26 13:29] LABS: INR 0.95 (0.87-1.13)
[2017-09-26 13:30] LABS: ALBUMIN 2.4 g/dL (3.4-5.0); ALKALINE PHOSPHATASE 231 U/L (46-116); ASPARTATE AMINOTRANSFERASE 12 U/L (15-37); BILIRUBIN,TOTAL 0.3 mg/dL (0.2-1.0)
[2017-09-26 13:32] LABS: TROPONIN I 0.305 ng/mL (0.00-0.056)
[2017-09-26 13:40] LABS: ALANINE AMINOTRANSFERASE < 6 U/L (12-78); BILIRUBIN,DIRECT 0.1 mg/dL (0.0-0.2)
[2017-09-26] MEDS ORDERED: BLOO-668 IN (13:51)
[2017-09-26] MEDS ORDERED: DOCU50LI GT (13:51)
[2017-09-26] MEDS ORDERED: NUT.237L30 GT (13:51)
[2017-09-26] MEDS ORDERED: METO25TA6 GT (13:51)
[2017-09-26] MEDS ORDERED: INSU100V11 SQ (13:51)
[2017-09-26] MEDS ORDERED: MAGN400O6 PO (13:51)
[2017-09-26] MEDS ORDERED: ACET-868 GT (13:51)
[2017-09-26] MEDS ORDERED: ASPIRIN EC 325 MG TABLET.DR PO ONE (14:00)
[2017-09-26] MEDS ORDERED: ASPIRIN 81 MG TAB.CHEW ONE (14:03)
[2017-09-26 14:26] LABS: APPEARANCE,URINE SL CLOUDY (CLEAR); BILIRUBIN,URINE NEGATIVE (NEGATIVE); BLOOD, URINE 2+ Ery/uL (NEGATIVE); COLOR,URINE YELLOW (YELLOW); KETONES,URINE NEGATIVE (NEGATIVE); LEUKOCYTE ESTERASE ,URINE 3+ (NEGATIVE); NITRITE, URINE NEGATIVE (NEGATIVE); PROTEIN,URINE TRACE mg/dl (NEGATIVE); UGLUCOSE 2+ mg/dL (NEGATIVE); UROBILINOGEN,URINE 0.2 EU/dL (0.2)
[2017-09-26 14:45] LABS: BACTERIA,URINE Few /HPF (None Seen); SQUAMOUS EPITHELIAL CELL,UR Rare /HPF (None Seen); WBC,URINE 51-80 /HPF (0-3)
[2017-09-26 15:00] VITALS: BP 142/74
[2017-09-26] MEDS ORDERED: TEMAZEPAM 15 MG CAPSULE GT PRN (16:00)
[2017-09-26] MEDS ORDERED: MAGNESIUM HYDROXIDE 30 ML UDC GT PRN (16:00)
[2017-09-26] MEDS ORDERED: ONDANSETRON HCL/PF 4 MG/2 ML VIAL IVP PRN (16:00)
[2017-09-26] MEDS ORDERED: TRAMADOL HCL 50 MG TABLET GT PRN (16:00)
[2017-09-26] MEDS ORDERED: Z GUARD REMEDY 2 OZ OINT TP PRN (16:00)
[2017-09-26] MEDS ORDERED: ZOLPIDEM TARTRATE 5 MG TABLET PO PRN (16:00)
[2017-09-26] MEDS ORDERED: MAGNESIUM HYDROXIDE 30 ML UDC PO PRN (16:00)
[2017-09-26] MEDS ORDERED: HYDROCODONE/APAP 5/325MG 1 EACH TABLET PO PRN (16:00)
[2017-09-26] MEDS ORDERED: MAG HYDROX/AL HYDROX/SIMETH 30 ML UDC PO PRN (16:00)
[2017-09-26] MEDS ORDERED: GLYTROL 1,000 ML BAG GT SCH (16:00)
[2017-09-26] MEDS ORDERED: ACETAMINOPHEN 325 MG TABLET PO PRN ×2 (16:00)
[2017-09-26] MEDS ORDERED: HYDROCODONE/APAP 5/325MG 1 EACH TABLET GT PRN (16:16)
[2017-09-26] MEDS: TAMSULOSIN 0.4 MG CAP.SR.24H GT SCH (17:13)
[2017-09-26] MEDS: BETHANECHOL CHLORIDE (25 MG) 25 MG TABLET GT SCH (17:13)
[2017-09-26] MEDS: CARBIDOPA/LEVODOPA 25/100 MG 1 UDTAB GT SCH ×2 (17:13→21:23)
[2017-09-26] MEDS: MAGNESIUM OXIDE 400 MG TABLET GT SCH (17:13)
[2017-09-26] MEDS: METOPROLOL TARTRATE 25 MG TABLET GT SCH (17:14)
[2017-09-26] MEDS: ENOXAPARIN SODIUM 40 MG/0.4 ML DISP.SYRIN SQ SCH (17:24)
[2017-09-26] MEDS ORDERED: BLOOD SUGAR DIAGNOSTIC 1 EACH STRIP IN SCH (18:00)
[2017-09-26] MEDS ORDERED: DEXTROSE 50%-WATER 50 ML DISP.SYRIN IV PRN (18:30)
[2017-09-26] MEDS: INSULIN REGULAR, HUMAN 100 UNIT/ML 3 ML VIAL SQ PRN (18:36)
[2017-09-26 20:00] VITALS: BP 150/56
[2017-09-26] MEDS: MIRTAZAPINE 15 MG TABLET GT SCH (21:24)
[2017-09-26] MEDS: ATORVASTATIN 10 MG TABLET GT SCH (21:24)
[2017-09-26] MEDS ORDERED: PRAVASTATIN SODIUM 20 MG TABLET PO SCH (22:00)
[2017-09-27] VITALS: BP 159/61
[2017-09-27] MEDS: INSULIN REGULAR, HUMAN 100 UNIT/ML 3 ML VIAL SQ PRN ×5 (00:08→21:55)
[2017-09-27] MEDS: BLOOD SUGAR DIAGNOSTIC 1 EACH STRIP IN SCH ×4 (00:08→17:16)
[2017-09-27] MEDS ORDERED: CEFTRIAXONE 1 G VIAL ONE (02:43)
[2017-09-27] MEDS: CEFTRIAXONE 1 G in IV D5W 50 ML IV SCH (03:03)
[2017-09-27 04:00] VITALS: BP_SYST 146; BP_SYST 151; BP_DIAS 61; BP_DIAS 69
[2017-09-27] MEDS: CARBIDOPA/LEVODOPA 25/100 MG 1 UDTAB GT SCH ×5 (06:18→21:46)
[2017-09-27 07:41] LABS: BASOPHILS % (AUTO) 0.3 % (0.0-2.0); EOSINOPHILS # (AUTO) 0.4 /CMM (0.0-0.7); EOSINOPHILS % (AUTO) 5.3 % (0.0-6.0); HEMATOCRIT 31 % (39-51); HEMOGLOBIN 10.6 g/dL (13.5-17.5); LYMPHOCYTES # (AUTO) 1.7 /CMM (0.8-4.8); LYMPHOCYTES % (AUTO) 23.8 % (20.0-44.0); MEAN CORPUSCULAR HEMOGLOBIN 31 PG (26.0-33.0); MEAN CORPUSCULAR HGB CONC 34 g/dl (31.0-36.0); MEAN CORPUSCULAR VOLUME 91 fL (80-96); MONOCYTES # (AUTO) 0.7 /CMM (0.1-1.30); MONOCYTES % (AUTO) 10.2 % (2.0-12.0); NEUTROPHILS # (AUTO) 4.3 /CMM (1.8-8.9); NEUTROPHILS % (AUTO) 60.4 % (43.0-81.0); PLATELET COUNT (AUTO) 212 /CMM (150-450); RDW COEFFICIENT OF VARIATION 14.9 (11.5-15.0)
[2017-09-27 07:59] LABS: B-TYPE NATRIURETIC PEPTIDE 2530 PG/ML (0-125); CALCIUM, SERUM 8.9 mg/dL (8.5-10.1); CARBON DIOXIDE 27 mmol/L (21-32); CHLORIDE 102 mmol/L (98-107); CREATININE 1.3 mg/dL (0.6-1.3); GLUCOSE 284 mg/dL (74-106); MAGNESIUM 1.9 mg/dL (1.8-2.4); PHOSPHORUS 2.9 mg/dL (2.5-4.9); POTASSIUM 4.7 mmol/L (3.5-5.1); SODIUM SERUM 137 mmol/L (136-145); UREA NITROGEN, BLOOD 37 mg/dL (7-18)
[2017-09-27 08:00] VITALS: BP 151/64
[2017-09-27] MEDS: ASPIRIN 81 MG TAB.CHEW GT SCH (09:27)
[2017-09-27] MEDS: DOCUSATE SODIUM LIQ 100 MG/10 ML UDC GT SCH (09:27)
[2017-09-27] MEDS: TAMSULOSIN 0.4 MG CAP.SR.24H GT SCH ×2 (09:27→17:05)
[2017-09-27] MEDS: MAGNESIUM OXIDE 400 MG TABLET GT SCH ×2 (09:27→17:05)
[2017-09-27] MEDS: LEVOTHYROXINE SODIUM 125 MCG TABLET GT SCH (09:28)
[2017-09-27] MEDS: METOPROLOL TARTRATE 25 MG TABLET GT SCH ×2 (09:28→17:05)
[2017-09-27] MEDS: BETHANECHOL CHLORIDE (25 MG) 25 MG TABLET GT SCH ×3 (09:29→17:06)
[2017-09-27 12:00] VITALS: BP 141/58
[2017-09-27] MEDS ORDERED: GLYTROL 1,000 ML BAG GT PRN (13:30)
[2017-09-27 16:00] VITALS: BP 146/61
[2017-09-27 20:00] VITALS: BP 136/57
[2017-09-27] MEDS: ATORVASTATIN 10 MG TABLET GT SCH (21:46)
[2017-09-27] MEDS: MIRTAZAPINE 15 MG TABLET GT SCH (21:46)
[2017-09-27] MEDS: ENOXAPARIN SODIUM 40 MG/0.4 ML DISP.SYRIN SQ SCH (21:54)
[2017-09-28] VITALS: BP 146/61
[2017-09-28] MEDS: BLOOD SUGAR DIAGNOSTIC 1 EACH STRIP IN SCH ×3 (01:21→12:03)
[2017-09-28] MEDS: CEFTRIAXONE 1 G in IV D5W 50 ML IV SCH (02:34)
[2017-09-28 04:00] VITALS: BP 142/58
[2017-09-28] MEDS: CARBIDOPA/LEVODOPA 25/100 MG 1 UDTAB GT SCH ×2 (06:14→10:17)
[2017-09-28] MEDS: INSULIN REGULAR, HUMAN 100 UNIT/ML 3 ML VIAL SQ PRN ×2 (06:24→12:06)
[2017-09-28 08:00] VITALS: BP 156/66
[2017-09-28] MEDS: DOCUSATE SODIUM LIQ 100 MG/10 ML UDC GT SCH (09:06)
[2017-09-28] MEDS: TAMSULOSIN 0.4 MG CAP.SR.24H GT SCH (09:06)
[2017-09-28] MEDS: LEVOTHYROXINE SODIUM 125 MCG TABLET GT SCH (09:07)
[2017-09-28] MEDS: METOPROLOL TARTRATE 25 MG TABLET GT SCH (09:07)
[2017-09-28] MEDS: ASPIRIN 81 MG TAB.CHEW GT SCH (09:07)
[2017-09-28] MEDS: BETHANECHOL CHLORIDE (25 MG) 25 MG TABLET GT SCH ×2 (09:07→13:05)
[2017-09-28] MEDS: MAGNESIUM OXIDE 400 MG TABLET GT SCH (09:08)
[2017-09-28 11:39] LABS: BASOPHILS # (AUTO) 0.1 /CMM (0.0-0.2); BASOPHILS % (AUTO) 1.5 % (0.0-2.0); EOSINOPHILS # (AUTO) 0.4 /CMM (0.0-0.7); EOSINOPHILS % (AUTO) 5.4 % (0.0-6.0); HEMATOCRIT 31 % (39-51); HEMOGLOBIN 10.5 g/dL (13.5-17.5); LYMPHOCYTES # (AUTO) 1.6 /CMM (0.8-4.8); LYMPHOCYTES % (AUTO) 23.5 % (20.0-44.0); MEAN CORPUSCULAR HEMOGLOBIN 31 PG (26.0-33.0); MEAN CORPUSCULAR HGB CONC 34 g/dl (31.0-36.0); MEAN CORPUSCULAR VOLUME 91 fL (80-96); MONOCYTES # (AUTO) 0.8 /CMM (0.1-1.30); MONOCYTES % (AUTO) 11.1 % (2.0-12.0); NEUTROPHILS % (AUTO) 58.5 % (43.0-81.0); PLATELET COUNT (AUTO) 226 /CMM (150-450); RDW COEFFICIENT OF VARIATION 15.2 (11.5-15.0); RED BLOOD CELL COUNT(AUTO) 3.45 MIL/uL (4.5-6.0); WHITE BLOOD COUNT (AUTO) 6.8 K/uL (4.3-11.0)
[2017-09-28] MEDS ORDERED: LEVO500T75 PO (11:39)
[2017-09-28 12:00] VITALS: BP 146/60
[2017-09-28 12:07] LABS: CALCIUM, SERUM 9.1 mg/dL (8.5-10.1); CARBON DIOXIDE 28 mmol/L (21-32); CHLORIDE 102 mmol/L (98-107); CREATININE 1.3 mg/dL (0.6-1.3); GLUCOSE 266 mg/dL (74-106); POTASSIUM 4.5 mmol/L (3.5-5.1); SODIUM SERUM 137 mmol/L (136-145); UREA NITROGEN, BLOOD 28 mg/dL (7-18)
[2017-09-28 12:12] LABS: ALANINE AMINOTRANSFERASE 6 U/L (12-78); ALBUMIN 2.3 g/dL (3.4-5.0); ALKALINE PHOSPHATASE 155 U/L (46-116); ASPARTATE AMINOTRANSFERASE 16 U/L (15-37); BILIRUBIN,TOTAL 0.2 mg/dL (0.2-1.0); MAGNESIUM 1.9 mg/dL (1.8-2.4); PHOSPHORUS 3.4 mg/dL (2.5-4.9); TOTAL PROTEIN, SERUM 7.9 g/dL (6.4-8.2)
== END 2017-09-28 15:21 | DRG 280 ==
LOC: ER 12:19 → TELE1 14:25 → MEDSG1 09-28 11:09
DX: I21.4 Non-ST elevation (NSTEMI) myocardial infarction (principal); G93.40 Encephalopathy, unspecified; G93.41 Metabolic encephalopathy; N17.9 Acute kidney failure, unspecified; R13.10 Dysphagia, unspecified; N39.0 Urinary tract infection, site not specified; I13.0 Hypertensive heart and chronic kidney disease with heart failure and stage 1 through stage 4 chronic kidney disease, or unspecified chronic kidney disease; Z95.5 Presence of coronary angioplasty implant and graft; Z93.3 Colostomy status; Z93.1 Gastrostomy status; Z86.73 Personal history of transient ischemic attack (TIA), and cerebral infarction without residual deficits; Z79.899 Other long term (current) drug therapy; Z79.82 Long term (current) use of aspirin; N40.0 Benign prostatic hyperplasia without lower urinary tract symptoms; I25.10 Atherosclerotic heart disease of native coronary artery without angina pectoris; N18.9 Chronic kidney disease, unspecified; K21.9 Gastro-esophageal reflux disease without esophagitis; L30.4 Erythema intertrigo; E11.22 Type 2 diabetes mellitus with diabetic chronic kidney disease; E03.9 Hypothyroidism, unspecified; I25.2 Old myocardial infarction; G20 Parkinson's disease; L89.90 Pressure ulcer of unspecified site, unspecified stage; I50.9 Heart failure, unspecified; E78.5 Hyperlipidemia, unspecified; Z66 Do not resuscitate; L98.9 Disorder of the skin and subcutaneous tissue, unspecified; I70.0 Atherosclerosis of aorta
CPT/HCPCS: 36415; 71045-TC; 80048-TC; 80053-TC; 80076-TC; 81000-TC; 82962-TC; 83605-TC; 83735-TC; 83880; 84100-TC; 84484-TC; 85025-TC; 85730-TC; 87040-TC; 87081-TC; 87086-TC; 92611-TC; A4606; J0696; J1650; J1815; J7050; J7060; Z7610